=== PATIENT | male | born 1955 | race Caucasian/White ===

== ENCOUNTER 2019-02-12 16:55 | Emergency (ER) | payer OTHER ==
[2019-02-12 17:05] VITALS: RESP 18; TEMP 99
--- NOTE | 2019-02-12 18:01 | XR ---
EXAMINATION TYPE: XR chest 2V DATE OF EXAM: 02/12/2019 COMPARISON: 05/23/2015 HISTORY: Preop TECHNIQUE: 2 views FINDINGS: Heart and mediastinum are normal. Lungs are clear. Diaphragm is normal. Bony thorax appears normal. There is no pleural effusion. There is cervical spine fusion surgery. IMPRESSION: Normal chest. No change.
--- NOTE | 2019-02-12 18:31 | US ---
EXAMINATION TYPE: US venous doppler duplex LE BI DATE OF EXAM: 02/12/2019 6:22 PM COMPARISON: NONE CLINICAL HISTORY: bilat LE swelling. SIDE PERFORMED: Bilateral TECHNIQUE: The lower extremity deep venous system is examined utilizing real time linear array sonog kristian with graded compression, doppler sonography and color-flow sonography. VESSELS IMAGED: External Iliac Vein (EIV) Common Femoral Vein Deep Femoral Vein Greater Saphenous Vein * Femoral Vein Popliteal Vein Small Saphenous Vein * Proximal Calf Veins (* superficial vessels) Right Leg: Negative for DVT Left Leg: Negative for DVT IMPRESSION: No evidence of deep venous thrombosis in both legs.
--- NOTE | 2019-02-12 19:31 | ED ---
Extremity Problem HPI - General Chief complaint: Extremity Problem,Nontraumatic Stated complaint: bilat foot swelling Time Seen by Provider: 02/12/19 17:15 Source: patient Mode of arrival: wheelchair Limitations: no limitations - History of Present Illness Initial comments: Patient is a 63-year-old male, wheelchair bound presenting to the emergency [facility] with a chief complaint of bilateral lower extremity edema. Reports a gradual increase in severity over the last 3 days. Patient reports he feels like his legs are full. Denies any trauma to the region. Does report some shortness of breath but states that is his baseline due to his long-time smoking habits. Denies any cardiovascular history. Denies any numbness or tingling. Denies taking any medication to alleviate the symptoms. Denies any abdominal pain nausea vomiting chest pain . - Related Data Home Medications Medication Instructions Recorded Confirmed Cholecalciferol [Vitamin D3] 3,000 unit PO DAILY 05/19/15 05/29/15 Mometasone/Formoterol [Dulera 200 2 puff INHALATION BID 05/19/15 05/29/15 Mcg/5 Mcg Inhaler] Previous Rx's Medication Instructions Recorded HYDROcodone/APAP 5-325MG [[place] 5] 1 each PO Q8HR PRN #90 tab 06/01/15 Furosemide [Lasix] 10 mg PO DAILY #7 dose 02/12/19 Allergies Allergy/AdvReac Type Severity Reaction Status Date / Time aspirin AdvReac burning in Verified 02/12/19 16:57 stomach Review of Systems ROS Statement: Those systems with pertinent positive or pertinent negative responses have been documented in the HPI. ROS Other: All systems not noted in ROS Statement are negative. 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 Other surgical hx: minor surgery for an abscessed tooth Past Anesthesia/Blood Transfusion Reactions: No Reported Reaction Past Psychological History: Depression Smoking Status: Current every day smoker Past Alcohol Use History: None Reported Past Drug Use History: Marijuana - Past Family History Mother Family Medical History: Myocardial Infarction (NC) (Mother at age of 49 from NC) Additional Family Medical History / Comment(s): Mother of a NC at age 49 yrs. Father History Unknown: Yes Family Medical History: Unable to Obtain (Father at age of 62 of unknown cause.) Additional Family Medical History / Comment(s): Pt knows that father at age 62 yrs. Sister(s) Family Medical History: No Reported History (Patient had 2 sisters one of them ) Brother(s) Family Medical History: No Reported History (Patient has 2 brothers) Daughter(s) Family Medical History: No Reported History (Patient has 3 daughters no major medical problems) Son(s) Family Medical History: No Reported History (Patient has one son no major medical problems) General Exam Limitations: physical limitation General appearance: alert, in no apparent distress Head exam: Present: atraumatic, normocephalic, normal inspection Eye exam: Present: normal appearance ENT exam: Present: normal exam, normal oropharynx, mucous membranes moist Neck exam: Present: normal inspection, full ROM Respiratory exam: Present: normal lung sounds bilaterally. Absent: rales Cardiovascular Exam: Present: regular rate, normal rhythm, normal heart sounds. Absent: systolic murmur, diastolic murmur Extremities exam: Present: normal inspection, full ROM, pedal edema (+2 pitting edema). Absent: tenderness Back exam: Present: normal inspection, full ROM Neurological exam: Present: alert, oriented X3 Psychiatric exam: Present: normal affect, normal mood Skin exam: Present: warm, dry, intact, normal color Course Vital Signs 02/12/19 16:57 Temperature 99.0 F Pulse Rate 83 Respiratory 18 Rate Blood Pressure 157/88 O2 Sat by Pulse 96 Oximetry Medical Decision Making - Medical Decision Making Patient is 63-year-old male presenting to emergency Department with a chief complaint of leg swelling in both legs. On exam patient does have +2 bilateral pitting edema. Patient has no history of heart failure. Chest x-ray shows no cardiomegaly or pleural effusion. EKG shows normal sinus rhythm advised to changes. Initial troponin is negative. Bilateral Doppler negative for DVT. CBC CMP unremarkable. At this point I suspect the patient has dependent bilateral edema secondary to being wheelchair bound. Patient given a single dose of IV Lasix in the ED. BNP 144. No signs of HF. Patient will be discharged with a seven-day course of 10 mg of Lasix. Patient vised to follow-up with primary care. Patient advised to elevate legs above heart level. No chest pain, short of breath. Strict return parameters were thoroughly discussed the patient was understanding and agreeable. Case discussed with physician. - Lab Data Result diagrams: 02/12/19 19:25 02/12/19 19:25 Lab Results 02/12/19 02/12/19 02/12/19 Range/Units 19:25 19:25 19:25 WBC 13.0 H (3.8-10.6) k/uL RBC 5.11 (4.30-5.90) m/uL Hgb 15.5 (13.0-17.5) gm/dL Hct 46.9 (39.0-53.0) % MCV 91.8 (80.0-100.0) fL MCH 30.3 (25.0-35.0) pg MCHC 33.1 (31.0-37.0) g/dL RDW 13.0 (11.5-15.5) % Plt Count 257 (150-450) k/uL Neutrophils % 68 % Lymphocytes % 21 % Monocytes % 5 % Eosinophils % 2 % Basophils % 2 % Neutrophils # 8.8 H (1.3-7.7) k/uL Lymphocytes # 2.8 (1.0-4.8) k/uL Monocytes # 0.7 (0-1.0) k/uL Eosinophils # 0.3 (0-0.7) k/uL Basophils # 0.3 H (0-0.2) k/uL Sodium 139 (137-145) mmol/L Potassium 4.2 (3.5-5.1) mmol/L Chloride 107 (98-107) mmol/L Carbon Dioxide 25 (22-30) mmol/L Anion Gap 7 mmol/L BUN 14 (9-20) mg/dL Creatinine 0.70 (0.66-1.25) mg/dL Est GFR (CKD-EPI)AfAm >90 (>60 ml/min/1.73 sqM) Est GFR (CKD-EPI)NonAf >90 (>60 ml/min/1.73 sqM) Glucose 102 H (74-99) mg/dL Calcium 9.3 (8.4-10.2) mg/dL Total Bilirubin 0.5 (0.2-1.3) mg/dL AST 31 (17-59) U/L ALT 18 (4-49) U/L Alkaline Phosphatase 94 (38-126) U/L Troponin I (0.000-0.034) ng/mL NT-Pro-B Natriuret Pep 144 pg/mL Total Protein 7.0 (6.3-8.2) g/dL Albumin 4.3 (3.5-5.0) g/dL 02/12/19 Range/Units 19:25 WBC (3.8-10.6) k/uL RBC (4.30-5.90) m/uL Hgb (13.0-17.5) gm/dL Hct (39.0-53.0) % MCV (80.0-100.0) fL MCH (25.0-35.0) pg MCHC (31.0-37.0) g/dL RDW (11.5-15.5) % Plt Count (150-450) k/uL Neutrophils % % Lymphocytes % % Monocytes % % Eosinophils % % Basophils % % Neutrophils # (1.3-7.7) k/uL Lymphocytes # (1.0-4.8) k/uL Monocytes # (0-1.0) k/uL Eosinophils # (0-0.7) k/uL Basophils # (0-0.2) k/uL Sodium (137-145) mmol/L Potassium (3.5-5.1) mmol/L Chloride (98-107) mmol/L Carbon Dioxide (22-30) mmol/L Anion Gap mmol/L BUN (9-20) mg/dL Creatinine (0.66-1.25) mg/dL Est GFR (CKD-EPI)AfAm (>60 ml/min/1.73 sqM) Est GFR (CKD-EPI)NonAf (>60 ml/min/1.73 sqM) Glucose (74-99) mg/dL Calcium (8.4-10.2) mg/dL Total Bilirubin (0.2-1.3) mg/dL AST (17-59) U/L ALT (4-49) U/L Alkaline Phosphatase (38-126) U/L Troponin I <0.012 (0.000-0.034) ng/mL NT-Pro-B Natriuret Pep pg/mL Total Protein (6.3-8.2) g/dL Albumin (3.5-5.0) g/dL - EKG Data EKG Comments: Normal sinus rhythm, no ST changes. Medical rate 64, LA interval 146, QRS duration 90, QTc 408 Disposition Clinical Impression: Bilateral edema of lower extremity Disposition: HOME SELF-CARE Condition: Stable Instructions (If sedation given, give patient instructions): Leg Edema (ED) Additional Instructions: Please take prescribed medication as directed. Please follow up primary care. Please return to emergency department is symptoms worsen. Prescriptions: Furosemide [Lasix] 10 mg PO DAILY #7 dose Is patient prescribed a controlled substance at d/c from ED?: No Referrals: Jodi Hayward MD [Primary Care Provider] - 1-2 days Time of Disposition: 20:48
[2019-02-12 19:40] LABS: Basophils # (A) 0.3 k/uL (0-0.2); Basophils % (A) 2 %; Eosinophils # (A) 0.3 k/uL (0-0.7); Eosinophils % (A) 2 %; HCT 46.9 % (39.0-53.0); HGB 15.5 gm/dL (13.0-17.5); Lymphocytes # (A) 2.8 k/uL (1.0-4.8); Lymphocytes % (A) 21 %; MCH 30.3 pg (25.0-35.0); MCHC 33.1 g/dL (31.0-37.0); MCV 91.8 fL (80.0-100.0); Mean Platelet Volume 7.7; Monocytes # (A) 0.7 k/uL (0-1.0); Monocytes % (A) 5 %; Neutrophils # (A) 8.8 k/uL (1.3-7.7); Neutrophils % (A) 68 %; Platelet Count 257 k/uL (150-450); RBC 5.11 m/uL (4.30-5.90)
[2019-02-12 19:59] LABS: ALT 18 U/L (4-49); AST 31 U/L (17-59); African American GFR (CKD) >90 (>60 ml/min/1.73 sqM); Albumin 4.3 g/dL (3.5-5.0); Alkaline Phosphatase 94 U/L (38-126); Anion Gap 7 mmol/L; Blood Urea Nitrogen 14 mg/dL (9-20); Calcium 9.3 mg/dL (8.4-10.2); Carbon Dioxide 25 mmol/L (22-30); Chloride 107 mmol/L (98-107); Glucose 102 mg/dL (74-99); Non-African American GFR(CKD) >90 (>60 ml/min/1.73 sqM); Potassium 4.2 mmol/L (3.5-5.1); Sodium 139 mmol/L (137-145); Total Bilirubin 0.5 mg/dL (0.2-1.3)
[2019-02-12] MEDS ORDERED: FUROSEMIDE 10 MG/ML 2 ML VIAL IV ONE (20:47)
[2019-02-12 21:20] VITALS: BP 150/99; PULSE 65
--- NOTE | 2019-02-15 04:21 | CDI ---
Dear Nirmal Garcia PA-C: Please do addendum clarification whether Lasix IV was administered in this visit as in VIEW EMR Medications Administration column was blank as in MDM clearly mentioned "Patient given a single dose of IV Lasix." Thank You, Martina Fernandes, Distiller. If you have any questions, please contact [employer] at [phone]. [email or web address]
== END 2019-02-12 21:19 | disposition home or self-care (01) ==
LOC: EC 16:55
DX: R60.0 Localized edema (principal); R06.02 Shortness of breath; K42.9 Umbilical hernia without obstruction or gangrene; G83.89 Other specified paralytic syndromes; J44.9 Chronic obstructive pulmonary disease, unspecified; M19.90 Unspecified osteoarthritis, unspecified site; F17.200 Nicotine dependence, unspecified, uncomplicated; Z88.6 Allergy status to analgesic agent; Z79.51 Long term (current) use of inhaled steroids; Z79.899 Other long term (current) drug therapy; Z98.1 Arthrodesis status; Z99.3 Dependence on wheelchair
CPT/HCPCS: 99284; 96374; 36415; 93005; 83880; 80053; 84484; 85025; 71046; 93970; J1940